=== PATIENT | male | born 1955 | race Caucasian/White ===

== ENCOUNTER 2018-09-25 22:49 | Observation (INO) | payer OTHER ==
--- NOTE | 2018-09-25 23:09 | PDOC ---
History of Present Illness - General Stated Complaint: CHEST PAIN Time Seen by Provider: 09/25/18 23:07 History Source: Patient Exam Limitations: No Limitations - History of Present Illness Initial Comments: 09/25/18 23:28 Pt is a 63yo M with no significant PMH presenting to ED with complaints of substernal chest pressure x 2 hours. Pt states it started around 45 minutes after he had vegetable soup. He was sitting on the couch and when he attempted to get up, he started to feel the pressure. He endorses some nausea. Pain is substernal, does not radiate to the back or to the neck, not associated with SOB , but is pleuritic. He does state that when he takes in deep breaths, he can feel the pressure. He denies fever, chills, cough, SOB, back pain, neck pain, abdominal pain, vomiting, syncope, palpitations, swelling in the legs, recent surgeries. He returned from a road trip to [place]. Father had CHF and Mother had an [place] PMD: Dilia PMH: none PSH: knee surgery Meds: none Allergies: nkda Social: occasional alcohol use. Past History - Past Medical History Allergies/Adverse Reactions: Allergies Allergy/AdvReac Type Severity Reaction Status Date / Time No Known Allergies Allergy Verified 09/25/18 23:11 Home Medications: Ambulatory Orders NK [No Known Home Medication] 09/26/18 Review of Systems - Review of Systems Constitutional: No: Chills, Fever, Weakness HEENTM: No: Symptoms Reported Respiratory: No: Cough, Shortness of Breath, Wheezing, Hemoptysis Cardiac (ROS): Yes: Chest Pain, Chest Tightness. No: Lightheadedness, Palpitations, Syncope ABD/GI: Yes: Nausea. No: Constipated, Diarrhea, Poor Fluid Intake, Vomiting, Abdominal cramping : No: Burning, Dysuria Musculoskeletal: No: Back Pain, Muscle Pain, Neck Pain Integumentary: No: Symptoms Reported Neurological: No: Headache, Numbness, Tingling *Physical Exam - Vital Signs Last Vital Signs Temp Pulse Resp BP Pulse Ox 97.6 F 91 H 20 154/90 98 09/25/18 23:00 09/25/18 23:00 09/25/18 23:00 09/25/18 23:00 09/25/18 23:00 - Physical Exam General Appearance: Yes: Nourished, Appropriately Dressed. No: Apparent Distress HEENT: positive: EOMI, [place] Neck: positive: Trachea midline, Supple. negative: Lymphadenopathy (R), Lymphadenopathy (L) Respiratory/Chest: positive: Lungs Clear, Normal Breath Sounds Cardiovascular: positive: Regular Rhythm, Regular Rate, S1, S2. negative: Edema , JVD, Murmur Vascular Pulses: Carotid (R): 2+, Carotid (L): 2+, Dorsalis-Pedis (R): 2+, Doralis-Pedis (L): 2+ Gastrointestinal/Abdominal: positive: Normal Bowel Sounds, Soft. negative: Tender Musculoskeletal: negative: CVA Tenderness Extremity: positive: Normal Capillary Refill. negative: Pedal Edema, Swelling Integumentary: positive: Normal Color, Dry, Warm Neurologic: positive: business rules analyst II-XII NML intact, Fully Oriented, Alert, Normal Mood/ Affect, Normal Response, Motor Strength 5/5 Moderate Sedation - Procedure Monitoring Vital Signs: Procedure Monitoring Vital Signs Temperature 97.6 F 09/25/18 23:00 Pulse Rate 91 H 09/25/18 23:00 Respiratory Rate 20 09/25/18 23:00 Blood Pressure 154/90 09/25/18 23:00 O2 Sat by Pulse Oximetry (%) 98 09/25/18 23:00 ED Treatment Course - LABORATORY CBC & Chemistry Diagram: 09/25/18 23:17 09/25/18 23:17 - ADDITIONAL ORDERS Additional order review: Laboratory Results 09/25/18 09/25/18 09/25/18 23:17 23:17 23:17 PT with INR 11.50 INR 0.97 PTT (Actin FS) 31.6 Sodium Potassium Chloride Carbon Dioxide Anion Gap BUN Creatinine Creat Clearance w eGFR Random Glucose Calcium Magnesium Cancelled Total Bilirubin AST ALT Alkaline Phosphatase Creatine Kinase Troponin I Total Protein Albumin Lipase Cancelled 09/25/18 09/25/18 09/25/18 23:17 23:17 23:17 PT with INR INR PTT (Actin FS) Cancelled Sodium 137 Cancelled Potassium 4.1 Cancelled Chloride 104 Cancelled Carbon Dioxide 26 Cancelled Anion Gap 7 L Cancelled BUN 22 H Cancelled Creatinine 0.9 Cancelled Creat Clearance w eGFR > 60 Cancelled Random Glucose 87 Cancelled Calcium 8.9 Cancelled Magnesium 2.5 H Total Bilirubin 0.4 Cancelled AST 17 Cancelled ALT 38 Cancelled Alkaline Phosphatase 111 Cancelled Creatine Kinase 62 Troponin I < 0.02 Total Protein 7.5 Cancelled Albumin 4.0 Cancelled Lipase 226 09/25/18 23:17 RBC 5.13 MCV 90.4 MCHC 34.9 RDW 13.5 MPV 7.6 Neutrophils % 69.4 Lymphocytes % 18.8 Monocytes % 8.7 Eosinophils % 2.6 Basophils % 0.5 - Medications Given in the ED: ED Medications Discontinued Medications Generic Name Dose Route Start Last Admin Trade Name Cristo PRN Reason Stop Dose Admin Acetaminophen 1,000 mg 09/26/18 00:33 09/26/18 00:45 Ofirmev Injection - IVPB 09/26/18 00:34 1,000 mg ONCE ONE Administration Al Hydroxide/Mg Hydroxide 30 ml 09/25/18 23:23 09/26/18 00:04 Mylanta Oral Suspension - PO 09/25/18 23:24 30 ml ONCE ONE Administration Aspirin 162 mg 09/26/18 00:13 09/26/18 00:25 Asa - PO 09/26/18 00:14 162 mg ONCE ONE Administration Famotidine/Sodium Chloride 20 mg in 50 mls @ 100 mls/hr 09/25/18 23:23 00:04 Pepcid 20 Mg Premixed Ivpb - IVPB 09/25/18 23:52 100 mls/hr ONCE ONE Administration Sodium Chloride 1,000 mls @ 1,000 mls/hr 09/26/18 03:26 09/26/18 03:44 Normal Saline - IV 09/26/18 04:25 Not Given ASDIR STA Ondansetron HCl 4 mg 09/25/18 23:52 09/26/18 00:04 Zofran Injection IVPB 09/25/18 23:53 4 mg ONCE ONE Administration Medical Decision Making - Medical Decision Making 09/25/18 23:32 Pt is a 63yo M with no significant PMH presenting to ED with complaints of substernal chest pressure x 2 hours. Pt states it started around 45 minutes after he had vegetable soup. He was sitting on the couch and when he attempted to get up, he started to feel the pressure. He endorses some nausea. Pain is substernal, does not radiate to the back or to the neck, not associated with SOB. He does state that when he takes in deep breaths, he can feel the pressure. He denies fever, chills, cough, SOB, back pain, neck pain, abdominal pain, vomiting, syncope, palpitations, swelling in the legs, recent surgeries. He returned from a road trip to [place]. Father had CHF and Mother had an [place] Vitals: wnl PE: when pressing on epigastric, pressure is felt. Ddx includes but not limited to ACS, GERD, Gastritis, PE, PTX, PNA, Dissection -cbc, cmp, mg, cardiac prof, lipase, coags -ekg, cxr cancelled--> CTA -maalox, pepcid, ASA, Tylenol 09/26/18 06:38 PT feeling better after Tylenol. CTA negative for PE. Otherwise normal. LAbs wnl. Will admit tele/obs *DC/Admit/Observation/Transfer Diagnosis at time of Disposition: Chest pain Qualifiers: Chest pain type: unspecified Qualified Code(s): R07.9 - Chest pain, unspecified - Discharge Dispostion Decision to Admit order: Yes - Referrals - Patient Instructions - Post Discharge Activity
[2018-09-25 23:12] VITALS: BMI 28.5
[2018-09-25] MEDS ORDERED: FAMOTIDINE 20 MG/50 ML IVPB 20 MG/50 ML MG IVPB ONE ×2 (23:23→23:50)
[2018-09-25] MEDS ORDERED: MAG HYDROX/AL HYDROX/SIMETH 30 ML UNIT-DOSE CUP PO ONE (23:23)
[2018-09-25 23:47] LABS: BASO % 0.5 % (0-2.0); EOS % 2.6 % (0-4.5); HEMATOCRIT 46.4 % (35.4-49); HEMOGLOBIN 16.2 GM/dL (11.7-16.9); LYMPH % 18.8 % (8-40); MCH 31.5 pg (25.7-33.7); MCHC 34.9 g/dl (32.0-35.9); MEAN CELL VOLUME 90.4 fl (80-96); MEAN PLT VOLUME 7.6 fl (7.5-11.1); MONO % 8.7 % (3.8-10.2); NEUT % 69.4 % (42.8-82.8); PLATELET COUNT 205 K/MM3 (134-434); RBC 5.13 M/mm3 (4.00-5.60); RDW 13.5 % (11.9-15.9); WHITE BLOOD COUNT 9.2 K/mm3 (4.0-10.0)
[2018-09-25] MEDS ORDERED: MAG HYDROX/AL HYDROX/SIMETH 30 ML UNIT-DOSE CUP ONE (23:50)
[2018-09-25] MEDS ORDERED: ONDANSETRON 4 MG/2 ML VIAL ONE (23:52)
[2018-09-25] MEDS ORDERED: ONDANSETRON 4 MG/2 ML VIAL IVPB ONE (23:52)
[2018-09-26] MEDS ORDERED: ASPIRIN 81 MG CHEWABLE TABLETS PO ONE (00:13)
[2018-09-26 00:30] LABS: ALK PHOS 111 U/L (45-117); ANION GAP 7 MMOL/L (8-16); BILIRUBIN,TOTAL 0.4 mg/dL (0.2-1); BLOOD UREA NITROGEN 22 mg/dL (7-18); CALCIUM 8.9 mg/dL (8.5-10.1); CHLORIDE 104 mmol/L (98-107); CO2 26 mmol/L (21-32); CREATININE 0.9 mg/dL (0.55-1.3); GLUCOSE,RANDOM 87 mg/dL (74-106); LIPASE 226 U/L (73-393); MAGNESIUM 2.5 mg/dL (1.8-2.4); POTASSIUM 4.1 mmol/L (3.5-5.1); SGOT/AST 17 U/L (15-37); SGPT/ALT 38 U/L (13-61); SODIUM 137 mmol/L (136-145); TOT PROT 7.5 g/dl (6.4-8.2)
[2018-09-26] MEDS ORDERED: ASPIRIN COATED 81 MG TABLET.EC ONE (00:30)
[2018-09-26] MEDS ORDERED: ACETAMINOPHEN 1000 MG/100 ML VIAL (NON FORMULARY) IVPB ONE (00:33)
[2018-09-26] MEDS ORDERED: ACETAMINOPHEN INJECTION 100 ML IVPB ONE (00:33)
[2018-09-26 00:38] LABS: INR 0.97 (0.83-1.09); PROTHROMBIN TIME (PATIENT) 11.5 SEC (9.7-13.0)
--- NOTE | 2018-09-26 00:38 | PDOC ---
Attending Attestation - HPI HPI: 09/26/18 01:22 The patient is a 63 year old male, with no significant past medical history of who presents to the emergency department with 2 hours of substernal chest pressure. Patient reports his pain started 1hr after he ate soup. The patient notes he was sitting on the couch, got up and felt chest tightness. The patient report that on the onset of the symptoms he felt like he was going to throw up. Patient states he had 2 episodes of diarrhea yesterday. The patient denies shortness of breath, headache and dizziness. The patient denies fever, chills, vomit, diarrhea or constipation. The patient denies dysuria, frequency, urgency or hematuria. Allergies: NKDA Past surgical history: Knee Surgery Social history: occasional alcohol use PCP: Dr. Dobbs - Physicial Exam PE: 09/26/18 01:24 GENERAL: Awake, alert, and fully oriented, in no acute distress HEAD: No signs of trauma EYES: PERRLA, EOMI, sclera anicteric, conjunctiva clear ENT: Auricles normal inspection, hearing grossly normal, nares patent, oropharynx clear without exudates. Moist mucosa NECK: Normal ROM, supple, no lymphadenopathy, JVD, or masses LUNGS: Breath sounds equal, clear to auscultation bilaterally. No wheezes, and no crackles HEART: Regular rate and rhythm, normal S1 and S2, no murmurs, rubs or gallops ABDOMEN: Soft, nontender, normoactive bowel sounds. No guarding, no rebound. No masses EXTREMITIES: Normal range of motion, no edema. No clubbing or cyanosis. No cords, erythema, or tenderness NEUROLOGICAL: Cranial nerves II through XII grossly intact. Normal speech, normal gait SKIN: Warm, Dry, normal turgor, no rashes or lesions noted. <Magdiel Rees - Last Filed: 09/26/18 01:22> - Resident Resident Name: Sarah Rosenberg - ED Attending Attestation I have performed the following: I have examined & evaluated the patient, The case was reviewed & discussed with the resident, I agree w/resident's findings & plan, Exceptions are as noted - Medical Decision Making 09/26/18 00:36 I, Dr. Selin Sims, DO, attest that this document has been prepared under my direction and personally reviewed by me in its entirety. I further attest, that it accurately reflects all work, treatment, procedures and medical decision -making performed by me. 09/26/18 00:36 63yo male with chest pressure and pleuritic cp -concern for PE vs atypical acs -no heart burn, but had nausea earlier -worse with deep inspiration -will send labs, trop, ekg, cxr -will obtain cta chest- recently drove up from [place] -no leg pain -no radiation of pain except across his chest -will monitor and reassess 09/26/18 00:39 trop negative 09/26/18 01:43 pt states feeling better no pain at this time pain improved after tylenol cta negative for PE will keep for acs r/o pmd dr. dobbs cards: Dr. dugan in the past 09/26/18 01:[address] in obs for repeat trops and cardiac eval microblog sent to [facility] for obs placement <Selin Sims - Last Filed: 09/26/18 01:58> Heart Score/ECG Review - ECG Intrepretation Comment:: 09/26/18 00:38 sinus at 71, nl axis, nl interval, t wave inversions v5-6, abnl ekg <Selin Sims - Last Filed: 09/26/18 01:58> Attestations - Attestations 09/26/18 01:24 Documentation prepared by Magdiel Rees, acting as medical staff services coordinator for Selin Sims DO, MD <Magdiel Rees - Last Filed: 09/26/18 01:22>
[2018-09-26 00:41] LABS: ACTIVATED PTT 31.6 SECONDS (25.2-36.5)
[2018-09-26] MEDS ORDERED: SODIUM CHLORIDE 1,000 ML IV STA (03:26)
[2018-09-26] MEDS ORDERED: IBUPROFEN 400 MG TABLET (FP) PO PRN (03:29)
[2018-09-26] MEDS ORDERED: SODIUM CHLORIDE 1,000 ML IV SCH (03:30)
--- NOTE | 2018-09-26 03:49 | HP ---
CHIEF COMPLAINT:chest tightness PCP:Lavonne Beltran HISTORY OF PRESENT ILLNESS: 63 year old male with no PMHx presented with chest tightness after having dinner around 7 pm , he reports substernal chest pain sharp , worsening with breathing , not rtelated to postion 03/25 improved with tylenol in ED , denies any similar pain in the past , seneis any sob , palpitation , denies nay PARRA, blurry vision, reports N but no vomiting denies any urinary symptosm or swelling in his legs reports RUQ pain yesterday sudden and resolved spontaneously denies any fever, chills, sick contact. ER course was notable for: (1)CTA chest negative for PE (2)Trop negative x 2 (3)cbc, cmp Recent Travel:denies PAST MEDICAL HISTORY: denies PAST SURGICAL HISTORY: B/L meniscus tear (play Golf) Social History: Smoking:denies Alcohol:socially Drugs: denies Family History: Mother at 76 [place] , smoker Father @ 83 CHF Allergies No Known Allergies Allergy (Verified 09/25/18 23:11) HOME MEDICATIONS: Home Medications Medication Instructions Recorded NK [No Known Home Medication] 09/26/18 REVIEW OF SYSTEMS CONSTITUTIONAL: Absent: fever, chills, diaphoresis, generalized weakness, malaise, loss of appetite, weight change HEENT: Absent: rhinorrhea, nasal congestion, throat pain, throat swelling, difficulty swallowing, mouth swelling, ear pain, eye pain, visual changes CARDIOVASCULAR: Absent: chest pain, syncope, palpitations, irregular heart rate, lightheadedness , peripheral edema RESPIRATORY: Absent: cough, shortness of breath, dyspnea with exertion, orthopnea, wheezing, stridor, hemoptysis GASTROINTESTINAL: Absent: abdominal pain, abdominal distension, nausea, vomiting, diarrhea, constipation, melena, hematochezia GENITOURINARY: Absent: dysuria, frequency, urgency, hesitancy, hematuria, flank pain, genital pain MUSCULOSKELETAL: Absent: myalgia, arthralgia, joint swelling, back pain, neck pain SKIN: Absent: rash, itching, pallor HEMATOLOGIC/IMMUNOLOGIC: Absent: easy bleeding, easy bruising, lymphadenopathy, frequent infections ENDOCRINE: Absent: unexplained weight gain, unexplained weight loss, heat intolerance, cold intolerance NEUROLOGIC: Absent: headache, focal weakness or paresthesias, dizziness, unsteady gait, seizure, mental status changes, bladder or bowel incontinence PSYCHIATRIC: Absent: anxiety, depression, suicidal or homicidal ideation, hallucinations. PHYSICAL EXAMINATION Vital Signs - 24 hr 09/25/18 23:00 Temperature 97.6 F Pulse Rate 91 H Respiratory 20 Rate Blood Pressure 154/90 O2 Sat by Pulse 98 Oximetry (%) GENERAL: Awake, alert, and fully oriented, in no acute distress. HEAD: Normal with no signs of trauma. EYES: Pupils equal, round and reactive to light, EARS, NOSE, THROAT: Ears normal, nares patent, oropharynx clear without exudates. Moist mucous membranes. NECK: Normal range of motion, supple LUNGS: Breath sounds equal, clear to auscultation bilaterally. HEART: Regular rate and rhythm, normal S1 and S2 without murmur, rub or gallop. ABDOMEN: Soft, RUQ tenderness , not distended, normoactive bowel sounds, UPPER EXTREMITIES: 2+ pulses, warm, well-perfused. No cyanosis. No clubbing. No peripheral edema. LOWER EXTREMITIES: 2+ pulses, warm, well-perfused. No calf tenderness. No peripheral edema. NEUROLOGICAL: Cranial nerves II-XII intact. Normal speech. PSYCHIATRIC: Cooperative. SKIN: Warm, dry, normal turgor, Laboratory Results - last 24 hr 09/25/18 09/25/18 09/25/18 23:17 23:17 23:17 WBC 9.2 RBC 5.13 Hgb 16.2 Hct 46.4 MCV 90.4 MCH 31.5 MCHC 34.9 RDW 13.5 Plt Count 205 MPV 7.6 Absolute Neuts (auto) 6.4 Neutrophils % 69.4 Lymphocytes % 18.8 Monocytes % 8.7 Eosinophils % 2.6 Basophils % 0.5 Nucleated RBC % 0 PT with INR INR PTT (Actin FS) Cancelled Sodium Cancelled Potassium Cancelled Chloride Cancelled Carbon Dioxide Cancelled Anion Gap Cancelled BUN Cancelled Creatinine Cancelled Creat Clearance w eGFR Cancelled Random Glucose Cancelled Calcium Cancelled Magnesium Total Bilirubin Cancelled AST Cancelled ALT Cancelled Alkaline Phosphatase Cancelled Creatine Kinase Troponin I Total Protein Cancelled Albumin Cancelled Lipase 09/25/18 09/25/18 09/25/18 23:17 23:17 23:17 WBC RBC Hgb Hct MCV MCH MCHC RDW Plt Count MPV Absolute Neuts (auto) Neutrophils % Lymphocytes % Monocytes % Eosinophils % Basophils % Nucleated RBC % PT with INR 11.50 INR 0.97 PTT (Actin FS) 31.6 Sodium 137 Potassium 4.1 Chloride 104 Carbon Dioxide 26 Anion Gap 7 L BUN 22 H Creatinine 0.9 Creat Clearance w eGFR > 60 Random Glucose 87 Calcium 8.9 Magnesium 2.5 H Cancelled Total Bilirubin 0.4 AST 17 ALT 38 Alkaline Phosphatase 111 Creatine Kinase 62 Troponin I < 0.02 Total Protein 7.5 Albumin 4.0 Lipase 226 09/25/18 23:17 WBC RBC Hgb Hct MCV MCH MCHC RDW Plt Count MPV Absolute Neuts (auto) Neutrophils % Lymphocytes % Monocytes % Eosinophils % Basophils % Nucleated RBC % PT with INR INR PTT (Actin FS) Sodium Potassium Chloride Carbon Dioxide Anion Gap BUN Creatinine Creat Clearance w eGFR Random Glucose Calcium Magnesium Total Bilirubin AST ALT Alkaline Phosphatase Creatine Kinase Troponin I Total Protein Albumin Lipase Cancelled CBC, BMP 09/25/18 23:17 09/25/18 23:17 ASSESSMENT/PLAN: 63 year old male with no pmhx presented with worsening chest tightness after having dinner , pleuretic , sharp not related to postion ad,itted to obs tele to R.O ACS vs # Pleuretic chest pain R/O ACS , R/O PE * Tele obs * cardiac , BP monitor * Trend trop * EKG with No sta, t wave changes * consult cardiology DR zuniga * family history of heart attach , might benifit from Stress test * ASA 162 in ED , cont ASA daily * Lipid profile * CTA negative for PE * # elevated BP * monitor for 6 months with life style changes loosing weight , if still elevated will start Norvasc 5 mg po daily * educate the pt about daily BP monitoring # FEN * NS bolus 1 L and 125 CC/hr * E : monitor * N: regular diet # proph * DVTS: SCds, Hep sq * GI: zantc # dispo * obs tele # Full code Visit type - Emergency Visit Emergency Visit: Yes ED Registration Date: 09/26/18 Care time: The patient presented to the Emergency Department on the above date and was hospitalized for further evaluation of their emergent condition. - New Patient This patient is new to me today: Yes Date on this admission: 09/26/18 - Critical Care Critical Care patient: No
[2018-09-26] MEDS ORDERED: HEPARIN NA (PORCINE) 5,000 UNITS/ML 1ML VIAL SQ SCH (06:00)
--- NOTE | 2018-09-26 06:22 | PN ---
Teaching Attending Note Name of Resident: You Stevenson ATTENDING PHYSICIAN STATEMENT I saw and evaluated the patient. I reviewed the resident's note and discussed the case with the resident. I agree with the resident's findings and plan as documented. SUBJECTIVE: Patient is a 63 year old man whose only significant PMH was abnormal LFTs in 2014, now presents to ER with complaints of substernal chest pressure for 2 hours. He says pain started around 45 minutes after he had vegetable soup. He was sitting on the couch and when he attempted to get up, he started to feel the pressure. He endorses some nausea. Pain is substernal, does not radiate to the back or to the neck, not associated with SOB, but is pleuritic. He does state that when he takes in deep breaths, he can feel the pressure. He denies fever, chills, cough, SOB, back pain, neck pain, abdominal pain, vomiting, syncope, palpitations, swelling in the legs, recent surgeries. He returned from a road trip to [place]. Father had CHF and Mother had an [place] OBJECTIVE: Alert Vital Signs Period Temp Pulse Resp BP Sys/Cuevas Pulse Ox Last 24 Hr 97.6 F 91 20 154/90 98 HEENT: No Jaundice, eye redness or discharge, PERRLA, EOMI. Normocephalic, atraumatic. External ears are normal and hearing is grossly intact. No nasal discharge. Neck: Supple, nontender. No palpable adenopathy or thyromegaly. No JVD Chest: Good effort. Clear to auscultation and percussion. Heart: Regular. No S3, rub or murmur Abdomen: Not distended, soft, nontender and no HSM. No rebound or guarding. Normal bowel sounds. Ext: Peripheral pulses intact. No leg edema. Skin: Warm and dry. No petechiae, rash or ecchymosis. Neuro: Alert. Oriented x3. CN 2-12 grossly intact. Sensation grossly intact in all four extremities and DTR are symmetric. Psych: Appropriate mood and affect. Good insight. Current Medications Generic Name Dose Route Start Last Admin Trade Name Freq PRN Reason Stop Dose Admin Heparin Sodium (Porcine) 5,000 unit 09/26/18 06:00 Heparin - SQ TID MARICRUZ Sodium Chloride 1,000 mls @ 125 mls/hr 09/26/18 03:30 09/26/18 03:44 Normal Saline - IV 125 mls/hr ASDIR MARICRUZ Administration Ibuprofen 400 mg 09/26/18 03:29 Motrin - PO Q6H PRN PAIN LEVEL 1 - 3 Ranitidine HCl 150 mg 09/26/18 10:00 Zantac - PO DAILY MARICRUZ Home Medications Medication Instructions Recorded NK [No Known Home Medication] 09/26/18 Abnormal Lab Results 09/25/18 23:17 Anion Gap 7 L BUN 22 H Magnesium 2.5 H ASSESSMENT AND PLAN: 1. Chest pain - Etiology unclear. CTA was negative for PE. Troponin was negative x 2 and EKG was NSR with no significant ST-T wave changes. Will admit him to telemetry, get ECHO, rule out ACS and refer to cardiology. Monitor BP closely since he may have undiagnosed hypertension. If his symptoms persists, then he may benefit from outpatient EGD. 2. DVT prophylaxis - Lovenox 40 mg SQ q 24 hours. 3. Advance directives - Full code
[2018-09-26 07:19] LABS: BASO % 0.4 % (0-2.0); EOS % 0.7 % (0-4.5); HEMATOCRIT 43.8 % (35.4-49); HEMOGLOBIN 15.3 GM/dL (11.7-16.9); LYMPH % 13.9 % (8-40); MCH 31.3 pg (25.7-33.7); MEAN CELL VOLUME 89.7 fl (80-96); MEAN PLT VOLUME 7.5 fl (7.5-11.1); PLATELET COUNT 198 K/MM3 (134-434); RBC 4.89 M/mm3 (4.00-5.60); RDW 13.3 % (11.9-15.9); WHITE BLOOD COUNT 8.4 K/mm3 (4.0-10.0)
[2018-09-26 07:36] LABS: AMYLASE 74 U/L (25-115); LIPASE 241 U/L (73-393)
[2018-09-26 07:38] LABS: ALBUMIN 3.8 g/dl (3.4-5.0); ALK PHOS 104 U/L (45-117); ANION GAP 6 MMOL/L (8-16); BILIRUBIN,TOTAL 0.8 mg/dL (0.2-1); BLOOD UREA NITROGEN 16 mg/dL (7-18); CALCIUM 8.6 mg/dL (8.5-10.1); CHLORIDE 107 mmol/L (98-107); CHOLESTEROL 223 mg/dL (50-200); CO2 25 mmol/L (21-32); CREATININE 0.9 mg/dL (0.55-1.3); GLUCOSE,RANDOM 84 mg/dL (74-106); HDL CHOLESTEROL 48 mg/dL (40-60); POTASSIUM 4.1 mmol/L (3.5-5.1); SGOT/AST 14 U/L (15-37); SGPT/ALT 35 U/L (13-61); SODIUM 138 mmol/L (136-145); TOT PROT 7.1 g/dl (6.4-8.2); TRIGLYCERIDES 97 mg/dL (0-150)
[2018-09-26] MEDS ORDERED: RANITIDINE HCL 150 MG TABLET (FP) ONE (09:14)
--- NOTE | 2018-09-26 09:40 | EKG ---
Test Reason : Blood Pressure : / mmHG Vent. Rate : 076 BPM Atrial Rate : 076 BPM P-R Int : 134 ms QRS Dur : 090 ms QT Int : 386 ms P-R-T Axes : 029 -15 018 degrees QTc Int : 434 ms NORMAL SINUS RHYTHM NORMAL ECG NO PREVIOUS ECGS AVAILABLE Confirmed by HO العراقي MD ([id number]) on 09/26/2018 9:40:02 AM Referred By: Confirmed By:HO العراقي MD
[2018-09-26] MEDS ORDERED: RANITIDINE HCL 150 MG TABLET (FP) PO SCH (10:00)
--- NOTE | 2018-09-26 11:42 | CON.CARD ---
Cardiology Consult (text) - Consultation Consultation Note: cc: cp hpi: 63 m no sig pmh here with cp. Yesterday ate dinner and shortly after noticed achey pain in central chest. No radiation. Mild, worse with deep breaths. No sob palps dizzy loc pnd orthopnea le edema. No hx of cp. Exercises often on elliptical w/o anginal sxs. Feels better now, cp resolved. pmh: per hpi psh: knee surgery social: no tob fam: mom mi. no premature cad. ros: per hpi; no fever, vomiting, diarrhea, robertson vision changes hematuria, gib. all others negative. meds: none taken pe: Vital Signs Period Temp Pulse Resp BP Sys/Cuevas Pulse Ox Last 24 Hr 97.6 F-98.4 F 79-91 17-20 120-154/78-90 96-98 nad no jvd rrr s1s2 no mrg cta bl nl eff aaox3 no le e/c/c abd nt nd pos bs no jaundice diaphoresis pos dp pt no carotid bruits Laboratory Last Values WBC 8.4 K/mm3 (4.0-10.0) 09/26/18 07:00 RBC 4.89 M/mm3 (4.00-5.60) 09/26/18 07:00 Hgb 15.3 GM/dL (11.7-16.9) 09/26/18 07:00 Hct 43.8 % (35.4-49) 09/26/18 07:00 MCV 89.7 fl (80-96) 09/26/18 07:00 MCH 31.3 pg (25.7-33.7) 09/26/18 07:00 MCHC 35.0 g/dl (32.0-35.9) 09/26/18 07:00 RDW 13.3 % (11.9-15.9) 09/26/18 07:00 Plt Count 198 K/MM3 (134-434) 09/26/18 07:00 MPV 7.5 fl (7.5-11.1) 09/26/18 07:00 Absolute Neuts (auto) 6.3 K/mm3 (1.5-8.0) 09/26/18 07:00 Neutrophils % 75.0 % (42.8-82.8) 09/26/18 07:00 Lymphocytes % 13.9 % (8-40) D 09/26/18 07:00 Monocytes % 10.0 % (3.8-10.2) 09/26/18 07:00 Eosinophils % 0.7 % (0-4.5) 09/26/18 07:00 Basophils % 0.4 % (0-2.0) 09/26/18 07:00 Nucleated RBC % 0 % (0-0) 09/26/18 07:00 ESR 2 mm/hr (0-20) 09/26/18 07:00 PT with INR 11.50 SEC (9.7-13.0) 09/25/18 23: INR 0.97 (0.83-1.09) 09/25/18 23: PTT (Actin FS) 30.8 SECONDS (25.2-36.5) 09/26/18 07:00 Sodium 138 mmol/L (136-145) 09/26/18 06:00 Potassium 4.1 mmol/L (3.5-5.1) 09/26/18 06:00 Chloride 107 mmol/L (98-107) 09/26/18 06:00 Carbon Dioxide 25 mmol/L (21-32) 09/26/18 06:00 Anion Gap 6 MMOL/L (8-16) L 09/26/18 06:00 BUN 16 mg/dL (7-18) 09/26/18 06:00 Creatinine 0.9 mg/dL (0.55-1.3) 09/26/18 06:00 Creat Clearance w eGFR > 60 (>60) 09/26/18 06:00 Random Glucose 84 mg/dL (74-106) 09/26/18 06:00 Calcium 8.6 mg/dL (8.5-10.1) 09/26/18 06:00 Magnesium 2.5 mg/dL (1.8-2.4) H 09/25/18 23:17 Total Bilirubin 0.8 mg/dL (0.2-1) 09/26/18 06:00 AST 14 U/L (15-37) L 09/26/18 06:00 ALT 35 U/L (13-61) 09/26/18 06:00 Alkaline Phosphatase 104 U/L (45-117) 09/26/18 06:00 Creatine Kinase 62 U/L (26-308) 09/25/18 23:17 Troponin I < 0.02 ng/ml (0.00-0.05) 09/26/18 04:06 C-Reactive Protein 0.8 MG/DL (0.00-0.3) H 09/26/18 06:00 Total Protein 7.1 g/dl (6.4-8.2) 09/26/18 06:00 Albumin 3.8 g/dl (3.4-5.0) 09/26/18 06:00 Triglycerides 97 mg/dL (0-150) 09/26/18 06:00 Cholesterol 223 mg/dL (50-200) H 09/26/18 06:00 Total LDL Cholesterol 150 mg/dL (5-100) H 09/26/18 06:00 HDL Cholesterol 48 mg/dL (40-60) 09/26/18 06:00 Total Amylase 74 U/L (25-115) 09/26/18 06:00 Lipase 241 U/L (73-393) 09/26/18 06:00 ecg: sr nl intervals no ischemic changes cta chest: no pe, no dissection, no chf a/p: 63 m no sig pmh here with cp. cp: -atypical cp, now resolved. possibly GI vs MSK, does not seem cardiac. -trops neg -ecg wnl -ett and echo done today are both unremarkable. -cardiac fair ok for dc.
--- NOTE | 2018-09-26 12:08 | ECHO ---
Name: VERAMELLISSA BELTRAN Exam:Adult Echocardiogram Study Date: 09/26/2018 09:47 AM Age: 63 yrs Reason For Study: Chest pain Height: 71 in Weight: 205 lb BSA: 2.1 m2 MMode/2D Measurements & Calculations IVSd: 0.82 cm Ao root diam: 3.3 cm LVIDd: 5.2 cm LA dimension: 3.7 cm LVIDs: 3.8 cm LVPWd: 0.70 cm EDV(Teich): 131.2 ml LVOT diam: 2.4 cm ESV(Teich): 62.6 ml TAPSE: 2.3 cm Doppler Measurements & Calculations MV E max negrito: 48.9 cm/sec Ao V2 max: 128.0 cm/sec MV A max negrito: 59.2 cm/sec Ao max P.6 mmHg MV E/A: 0.83 Ao V2 mean: 87.7 cm/sec MV dec time: 0.27 sec Ao mean P.6 mmHg Ao V2 VTI: 25.9 cm KATYA(I,D): 2.1 cm2 KATYA(V,D): 2.3 cm2 LV V1 max P.7 mmHg MR max negrito: 504.9 cm/sec LV V1 mean P.98 mmHg MR max P.0 mmHg LV V1 max: 65.5 cm/sec LV V1 mean: 45.6 cm/sec LV V1 VTI: 12.5 cm SV(LVOT): 55.2 ml TR max negrito: 197.5 cm/sec TR max P.6 mmHg PI end-d negrito: 131.7 cm/sec Med Peak E' Negrito: 7.3 cm/sec Med E/e': 6.7 Lat Peak E' Negrito: 6.1 cm/sec Lat E/e': 8.0 Procedure A complete two-dimensional transthoracic echocardiogram was performed (2D, M-mode, Doppler and color flow Doppler). Left Ventricle The left ventricular size, thickness and function are normal. The left ventricular ejection fraction is normal. Ejection Fraction = 55-60%. The left ventricular wall motion is normal. Right Ventricle The right ventricle is normal in size and function. Atria Normal left and right atrial size and function. Mitral Valve There is trace mitral regurgitation. Tricuspid Valve No tricuspid regurgitation. There was insufficient TR detected to calculate RV systolic pressure. Aortic Valve The aortic valve is trileaflet. No hemodynamically significant valvular aortic stenosis. No aortic regurgitation is present. Pulmonic Valve Trace pulmonic valvular regurgitation. Great Vessels The aortic root is normal size. Pericardium/Pleura There is no pericardial effusion. Interpretation Summary The left ventricular size, thickness and function are normal The right ventricle is normal in size and function. There is trace mitral regurgitation. Trace pulmonic valvular regurgitation. MD Vikram Cannon 09/26/2018 12:07 PM
--- NOTE | 2018-09-26 13:12 | TRE ---
Protocol Name : CRYSTAL Max Work Load (METS*10) : 101 Time In Exercise Phase : 00:09:00 Max. Systolic BP : 180 mmHg Max Diastolic BP : 90 mmHg Max Heart Rate : 142 BPM Max Predicted Heart Rate : 157 BPM Attending Physician : MALCOM Reason For Termination : Target Heart Rate Achieved Reason for Test : CP Stress Protocol : CRYSTAL Rest HR : 88 BPM PeakEx METs : 10.1 METS Recovery ECG Response (OLD) : Diagnosis : Baseline ecg shows sinus rhythm. No chest pain with exercise. No ischemic ecg changes or arrhythmias with exercise. Normal exercise stress ecg. Confirmed by HO العراقي MD ([id number]) on 09/26/2018 1:12:00 PM
--- NOTE | 2018-09-26 14:12 | PN ---
Teaching Attending Note Name of Resident: Marian Pierce ATTENDING PHYSICIAN STATEMENT I saw and evaluated the patient. I reviewed the resident's note and discussed the case with the resident. I agree with the resident's findings and plan as documented with exceptions below. SUBJECTIVE: Patient seen and examined. No chest pain or complaints otherwise. OBJECTIVE: Vital Signs Period Temp Pulse Resp BP Sys/Cuevas Pulse Ox Last 24 Hr 97.6 F-98.4 F 79-91 17-20 120-154/78-90 96-98 Intake & Output 09/23/18 09/24/18 09/25/18 09/26/18 23:59 23:59 23:59 23:59 Weight 205 lb General: sitting in stretcher, no acute distress chest: CTAB, no rales or wheezing Abdomen:Soft, NT, ND Extremities: no edema Home Medications Medication Instructions Recorded NK [No Known Home Medication] 09/26/18 Active Medications Heparin Sodium (Porcine) (Heparin -) 5,000 unit SQ TID [facility] Last Admin: 09/26/18 06:43 Dose: 5,000 unit Sodium Chloride (Normal Saline -) 1,000 mls @ 125 mls/hr IV ASDIR [facility] Last Admin: 09/26/18 03:44 Dose: 125 mls/hr Ibuprofen (Motrin -) 400 mg PO Q6H PRN PRN Reason: PAIN LEVEL 1 - 3 Ranitidine HCl (Zantac -) 150 mg PO DAILY [facility] Last Admin: 09/26/18 09:27 Dose: 150 mg Laboratory Results - last 24 hr 09/25/18 09/25/18 09/25/18 23:17 23:17 23:17 WBC 9.2 RBC 5.13 Hgb 16.2 Hct 46.4 MCV 90.4 MCH 31.5 MCHC 34.9 RDW 13.5 Plt Count 205 MPV 7.6 Absolute Neuts (auto) 6.4 Neutrophils % 69.4 Lymphocytes % 18.8 Monocytes % 8.7 Eosinophils % 2.6 Basophils % 0.5 Nucleated RBC % 0 ESR PT with INR INR PTT (Actin FS) Cancelled Sodium Cancelled Potassium Cancelled Chloride Cancelled Carbon Dioxide Cancelled Anion Gap Cancelled BUN Cancelled Creatinine Cancelled Creat Clearance w eGFR Cancelled Random Glucose Cancelled Calcium Cancelled Magnesium Total Bilirubin Cancelled AST Cancelled ALT Cancelled Alkaline Phosphatase Cancelled Creatine Kinase Troponin I C-Reactive Protein Total Protein Cancelled Albumin Cancelled Triglycerides Cholesterol Total LDL Cholesterol HDL Cholesterol Total Amylase Lipase 09/25/18 09/25/18 09/25/18 23:17 23:17 23:17 WBC RBC Hgb Hct MCV MCH MCHC RDW Plt Count MPV Absolute Neuts (auto) Neutrophils % Lymphocytes % Monocytes % Eosinophils % Basophils % Nucleated RBC % ESR PT with INR 11.50 INR 0.97 PTT (Actin FS) 31.6 Sodium 137 Potassium 4.1 Chloride 104 Carbon Dioxide 26 Anion Gap 7 L BUN 22 H Creatinine 0.9 Creat Clearance w eGFR > 60 Random Glucose 87 Calcium 8.9 Magnesium 2.5 H Cancelled Total Bilirubin 0.4 AST 17 ALT 38 Alkaline Phosphatase 111 Creatine Kinase 62 Troponin I < 0.02 C-Reactive Protein Total Protein 7.5 Albumin 4.0 Triglycerides Cholesterol Total LDL Cholesterol HDL Cholesterol Total Amylase Lipase 226 09/25/18 09/26/18 09/26/18 23:17 04:06 06:00 WBC RBC Hgb Hct MCV MCH MCHC RDW Plt Count MPV Absolute Neuts (auto) Neutrophils % Lymphocytes % Monocytes % Eosinophils % Basophils % Nucleated RBC % ESR PT with INR INR PTT (Actin FS) Sodium Potassium Chloride Carbon Dioxide Anion Gap BUN Creatinine Creat Clearance w eGFR Random Glucose Calcium Magnesium Total Bilirubin AST ALT Alkaline Phosphatase Creatine Kinase Troponin I < 0.02 C-Reactive Protein Total Protein Albumin Triglycerides Cholesterol Total LDL Cholesterol HDL Cholesterol Total Amylase 74 Lipase Cancelled 241 09/26/18 09/26/18 09/26/18 06:00 06:00 06:00 WBC RBC Hgb Hct MCV MCH MCHC RDW Plt Count MPV Absolute Neuts (auto) Neutrophils % Lymphocytes % Monocytes % Eosinophils % Basophils % Nucleated RBC % ESR PT with INR INR PTT (Actin FS) Sodium 138 Potassium 4.1 Chloride 107 Carbon Dioxide 25 Anion Gap 6 L BUN 16 Creatinine 0.9 Creat Clearance w eGFR > 60 Random Glucose 84 Calcium 8.6 Magnesium Total Bilirubin 0.8 AST 14 L ALT 35 Alkaline Phosphatase 104 Creatine Kinase Troponin I C-Reactive Protein 0.8 H Total Protein 7.1 Albumin 3.8 Triglycerides 97 Cholesterol 223 H Total LDL Cholesterol 150 H HDL Cholesterol 48 Total Amylase Lipase 09/26/18 09/26/18 09/26/18 07:00 07:00 07:00 WBC 8.4 RBC 4.89 Hgb 15.3 Hct 43.8 MCV 89.7 MCH 31.3 MCHC 35.0 RDW 13.3 Plt Count 198 MPV 7.5 Absolute Neuts (auto) 6.3 Neutrophils % 75.0 Lymphocytes % 13.9 D Monocytes % 10.0 Eosinophils % 0.7 Basophils % 0.4 Nucleated RBC % 0 ESR 2 PT with INR INR PTT (Actin FS) 30.8 Sodium Potassium Chloride Carbon Dioxide Anion Gap BUN Creatinine Creat Clearance w eGFR Random Glucose Calcium Magnesium Total Bilirubin AST ALT Alkaline Phosphatase Creatine Kinase Troponin I C-Reactive Protein Total Protein Albumin Triglycerides Cholesterol Total LDL Cholesterol HDL Cholesterol Total Amylase Lipase 09/26/18 11:53 WBC RBC Hgb Hct MCV MCH MCHC RDW Plt Count MPV Absolute Neuts (auto) Neutrophils % Lymphocytes % Monocytes % Eosinophils % Basophils % Nucleated RBC % ESR PT with INR INR PTT (Actin FS) Sodium Potassium Chloride Carbon Dioxide Anion Gap BUN Creatinine Creat Clearance w eGFR Random Glucose Calcium Magnesium Total Bilirubin AST ALT Alkaline Phosphatase Creatine Kinase Troponin I < 0.02 C-Reactive Protein Total Protein Albumin Triglycerides Cholesterol Total LDL Cholesterol HDL Cholesterol Total Amylase Lipase CTA chest/stress test/2D echo results reviewed ASSESSMENT AND PLAN: 63 yom with no significant PMHx admitted with atypical chest pain. -Atypical chest pain, suspect musculoskeletal Plan: Telemetry uneventful, ACS ruled out. stress test/2D echo results noted. Patient asymptomatic. Diet/exercise counseling and outpatient follow up to address further medication management. D/c home today. Plan discussed with patient and family at bedside in detail, all questions answered.
[2018-09-26 14:38] VITALS: BP 126/82; PULSE 75; TEMP 97.6
--- NOTE | 2018-09-26 15:35 | EKG ---
Test Reason : Blood Pressure : / mmHG Vent. Rate : 071 BPM Atrial Rate : 071 BPM P-R Int : 148 ms QRS Dur : 088 ms QT Int : 408 ms P-R-T Axes : 045 -10 038 degrees QTc Int : 443 ms NORMAL SINUS RHYTHM POSSIBLE LEFT ATRIAL ENLARGEMENT NONSPECIFIC T WAVE ABNORMALITY ABNORMAL ECG NO PREVIOUS ECGS AVAILABLE Confirmed by HO العراقي MD ([id number]) on 09/26/2018 3:35:13 PM Referred By: Confirmed By:HO العراقي MD
== END 2018-09-26 14:35 | disposition home or self-care (01) ==
LOC: JER 22:49 → JERBED 09-26 02:31
PROVIDERS: ADMIT Internal Medicine; ATTEND Hospitalist
PROC: 3E033NZ Introduction of Analgesics, Hypnotics, Sedatives into Peripheral Vein, Percutaneous Approach (ICD-10-PCS; principal; 2018-09-26)
PROC: 3E0337Z Introduction of Electrolytic and Water Balance Substance into Peripheral Vein, Percutaneous Approach (ICD-10-PCS; 2018-09-26)
PROC: 3E033GC Introduction of Other Therapeutic Substance into Peripheral Vein, Percutaneous Approach (ICD-10-PCS; 2018-09-26)
PROC: 3E013GC Introduction of Other Therapeutic Substance into Subcutaneous Tissue, Percutaneous Approach (ICD-10-PCS; 2018-09-26)
DX: R07.89 Other chest pain (principal); R03.0 Elevated blood-pressure reading, without diagnosis of hypertension; Z82.49 Family history of ischemic heart disease and other diseases of the circulatory system
CPT/HCPCS: 36415; 71046-TC-FY; 71275-TC; 80053; 80061; 82150; 82550; 83690; 83721; 83735; 84484; 85025; 85610; 85651; 85730; 86140; 93005; 93010; 93017; 93018; 93306-TC; 99285-25; G0378; J0131; J1644; J7030